=== PATIENT | female | born 1955 | race Two or more races ===

== ENCOUNTER → 2016-11-21 | Outpatient (CLI) | payer MEDICAID ==
[~2016-11-21] MED LIST: ACETAMINOPHEN120 MG RECTAL; BONIVA150 MG ORAL; CIPRO500 MG PO; FLAGYL500 MG ORAL; IBUPROFEN600 MG ORAL; NEURONTIN100 MG ORAL; PRAVACHOL20 MG ORAL; SERTRALINE HCL25 MG ORAL; SYNTHROID88 MCG ORAL; XOPENEX0.63 MG/3 HHN; ZOLPIDEM TARTRAT5 MG ORAL; inhaler
--- NOTE | 2016-11-21 15:23 | GI Progress Note ---
Assessment/Plan Problems: (1) Hemorrhoid ICD Codes: K64.9 - Unspecified hemorrhoids SNOMED: 76027787 (2) S/P colonoscopy ICD Codes: Z98.89 - Other specified postprocedural states SNOMED: 19347102, 201585115 (3) H/O esophagogastroduodenoscopy ICD Codes: Z98.89 - Other specified postprocedural states SNOMED: 92431768, 411717562 (4) Constipation ICD Codes: K59.00 - Constipation, unspecified SNOMED: 18626197 (5) Abdominal pain ICD Codes: R10.9 - Unspecified abdominal pain SNOMED: 94015760 (6) Diverticulitis ICD Codes: K57.92 - Diverticulitis of intestine, part unspecified, without perforation or abscess without bleeding SNOMED: 932536743 (7) Iron deficiency ICD Codes: E61.1 - Iron deficiency SNOMED: 79828706 (8) Diverticulosis ICD Codes: K57.90 - Diverticulosis of intestine, part unspecified, without perforation or abscess without bleeding SNOMED: 132187871 Status: stable Status Narrative Seen with Dr. Eugene. Assessment/Plan s/p EGD/colon @ [facility] 07/23/14 rx Elavil RTC prn repeat colon 06/2019 Subjective Subjective lower pelvic pain GERD BM are small pieces and soft occasional abdominal bloating Objective T 98.1 BP 134/84 P 82 100 RA Denies weight loss. General Appearance: no apparent distress, alert Cardiovascular: normal rate Respiratory/Chest: normal breath sounds, no respiratory distress Abdominal Exam: normal bowel sounds, non tender, soft Extremities: normal range of motion Objective s/p EGD/colon @ [facility] 07/23/14 - gastritis - large internal hemorrhoids - sigmoid diverticulosis Jossy Clements N.P. Nov 21, 2016 15:23
[2016-11-21 15:42] VITALS: BP 134/84
== END | disposition home or self-care (01) ==
LOC: PAN 14:24
DX: K64.9 Unspecified hemorrhoids (principal); Z98.890 Other specified postprocedural states; K59.00 Constipation, unspecified; R10.9 Unspecified abdominal pain; K57.92 Diverticulitis of intestine, part unspecified, without perforation or abscess without bleeding; E61.1 Iron deficiency; K57.90 Diverticulosis of intestine, part unspecified, without perforation or abscess without bleeding
CPT/HCPCS: 99201

== ENCOUNTER → 2017-04-29 | Outpatient (CLI) | payer MEDICAID ==
--- NOTE | 2017-04-29 15:11 | GI Progress Note ---
Assessment/Plan Problems: (1) Abdominal pain ICD Codes: R10.9 - Unspecified abdominal pain SNOMED: 40649139 (2) Diverticulitis ICD Codes: K57.92 - Diverticulitis of intestine, part unspecified, without perforation or abscess without bleeding SNOMED: 663626720 (3) Iron deficiency ICD Codes: E61.1 - Iron deficiency SNOMED: 34427853 (4) Constipation ICD Codes: K59.00 - Constipation, unspecified SNOMED: 14558558 (5) Asthma ICD Codes: J45.909 - Unspecified asthma, uncomplicated SNOMED: 973069415 (6) Nausea ICD Codes: R11.0 - Nausea SNOMED: 433323245 Status: stable Status Narrative Seen with Dr. Eugene. Assessment/Plan s/p EGD/colon @ [facility] 07/23/14 (repeat 2018) Rx Cipro + Flagyl for diverticulitis RTC prn Subjective Subjective Abdominal pain nausea only, took cipro and feels better dizziness Hx of diverticulitis Objective T 98 BP 124/74 HR 68 98 RA denies any weight loss General Appearance: no apparent distress, alert Cardiovascular: normal rate Respiratory/Chest: normal breath sounds, no respiratory distress Abdominal Exam: normal bowel sounds, non tender, soft Extremities: non-tender Jossy Clements NBlaynePBlayne Apr 29, 2017 15:11
[2017-04-29 16:57] VITALS: BP 124/74
== END | disposition home or self-care (01) ==
LOC: PAN 14:17
DX: R10.9 Unspecified abdominal pain (principal); K57.92 Diverticulitis of intestine, part unspecified, without perforation or abscess without bleeding; E61.1 Iron deficiency; K59.00 Constipation, unspecified; J45.909 Unspecified asthma, uncomplicated; R11.0 Nausea
CPT/HCPCS: 99211